=== PATIENT | male | born 1980 | race Caucasian/White ===

== ENCOUNTER 2016-11-08 21:28 | Emergency (ER) | payer SELFPAY ==
--- NOTE | 2016-11-08 22:06 | ED NURSING NOTES ---
Clinical Report - Nurses [facility] [place] [address] 11/08/2016 21:29 Patient: DION HUNTER TRIAGE Triage time 21:43. Chief Complaint: (Clear to book). --21:46 Sheriff Mena R.N. 21:42 11/08/16. BP: 139/87. HR: 118. RR: 20. O2 saturation: 94%. Temp: 98.4 F. Pain level now: 0/10. --21:46 Sheriff Mena R.N. Weight: 122.4 kg stated. Height/Length: 71 inches Per Patient. BMI: 37.7. --21:42 Sheriff Mena R.N. Medications Lisinopril Oral. --21:45 Sheriff Mena R.N. Allergies No Known Drug Allergy. --21:45 Sheriff Mena R.N. History Historian: patient. Arrived in police custody. SURGERY HX: No history of previous surgery. SOCIAL HX: Never smoker. Alcohol use; consumes beer weekly. History of drug use: marijuana. FALL RISK ASSESSMENT: Fall risk assessment completed. No fall risk identified. NUTRITIONAL RISK ASSESSMENT: The nutritional risk assessment revealed no deficiencies. FUNCTIONAL ASSESSMENT: Functional assessment: no impairments noted. LEARNING NEEDS ASSESSMENT: The learning needs assessment revealed no barriers. SKIN INTEGRITY ASSESSMENT: Skin integrity risk assessment completed. No skin integrity risk identified. --21:46 Sheriff Mena R.N. PROBLEMS: Hypertension. --21:46 Sheriff Mena R.N. PHYSICAL ASSESSMENT Ambulatory to room. GENERAL / NEURO / PSYCH: Alert. Oriented X 4. Appears in no acute distress. HEENT: Mucous membranes are pink. RESPIRATORY: Respirations not labored. CVS: Capillary refill less than 2 seconds. Pulses within normal limits. SKIN: Skin intact. Skin is warm and dry. Normal skin turgor. --22:15 Sheriff Mena R.N. NURSING PROGRESS NOTES Two patient identifiers checked. Call light placed in reach. Side rails up. Bed placed in lowest position. Brakes of bed on. --22:16 Sheriff Mena R.N. DISPOSITION / DISCHARGE Condition at departure: stable. No learning barriers present. Discharge instructions provided and reviewed with the patient. Patient verbalized understanding. Written instructions provided in [place]. The patient was discharged by the physician. He was discharged to police department facility and accompanied by a police escort. He left the Emergency Department ambulatory and via private vehicle and police department vehicle. Driving (Police). --22:17 Sheriff Mena R.N. Locked/Released at 11/08/2016 22:17 by Sheriff Mena R.N.
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
--- NOTE | 2016-11-08 22:06 | ED NURSING NOTES ---
Clinical Report - Nurses [facility] [place] [address] 11/08/2016 21:29 Patient: DION HUNTER TRIAGE Triage time 21:43. Chief Complaint: (Clear to book). --21:46 Sheriff Mena R.N. 21:42 11/08/16. BP: 139/87. HR: 118. RR: 20. O2 saturation: 94%. Temp: 98.4 F. Pain level now: 0/10. --21:46 Sheriff Mena R.N. Weight: 122.4 kg stated. Height/Length: 71 inches Per Patient. BMI: 37.7. --21:42 Sheriff Mena R.N. Medications Lisinopril Oral. --21:45 Sheriff Mena R.N. Allergies No Known Drug Allergy. --21:45 Sheriff Mena R.N. History Historian: patient. Arrived in police custody. SURGERY HX: No history of previous surgery. SOCIAL HX: Never smoker. Alcohol use; consumes beer weekly. History of drug use: marijuana. FALL RISK ASSESSMENT: Fall risk assessment completed. No fall risk identified. NUTRITIONAL RISK ASSESSMENT: The nutritional risk assessment revealed no deficiencies. FUNCTIONAL ASSESSMENT: Functional assessment: no impairments noted. LEARNING NEEDS ASSESSMENT: The learning needs assessment revealed no barriers. SKIN INTEGRITY ASSESSMENT: Skin integrity risk assessment completed. No skin integrity risk identified. --21:46 Sheriff Mena R.N. PROBLEMS: Hypertension. --21:46 Sheriff Mena R.N. PHYSICAL ASSESSMENT Ambulatory to room. GENERAL / NEURO / PSYCH: Alert. Oriented X 4. Appears in no acute distress. HEENT: Mucous membranes are pink. RESPIRATORY: Respirations not labored. CVS: Capillary refill less than 2 seconds. Pulses within normal limits. SKIN: Skin intact. Skin is warm and dry. Normal skin turgor. --22:15 Sheriff Mena R.N. NURSING PROGRESS NOTES Two patient identifiers checked. Call light placed in reach. Side rails up. Bed placed in lowest position. Brakes of bed on. --22:16 Sheriff Mena R.N. DISPOSITION / DISCHARGE Condition at departure: stable. No learning barriers present. Discharge instructions provided and reviewed with the patient. Patient verbalized understanding. Written instructions provided in [place]. The patient was discharged by the physician. He was discharged to police department facility and accompanied by a police escort. He left the Emergency Department ambulatory and via private vehicle and police department vehicle. Driving (Police). --22:17 Sheriff Mena R.N. Locked/Released at 11/08/2016 22:17 by Sheriff Mena R.N.
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
--- NOTE | 2016-11-09 03:19 | ED MED RECONCILIATION SUMMARY ---
Patient: DION HUNTER Medication Reconciliation Report [facility] VisitID: [id number] [address] [place] [address] 36y, M Registration Date/Time: 11/08/2016 Weight: 122.4 kg Height/Length: 71 in. BMI: 37.7 ALLERGIES: No Known Drug Allergy The patient's Home Medications are listed below: CONTINUE TAKING THE FOLLOWING MEDICATIONS: Lisinopril Oral The source(s) of the original Home Medication information: Not obtained. The following Medications were given to the patient in the Emergency Department: None. The following Medications were prescribed to the patient: None.
--- NOTE | 2016-11-09 03:19 | ED MED RECONCILIATION SUMMARY ---
Patient: DION HUNTER Medication Reconciliation Report [facility] VisitID: [id number] [address] [place] [address] 36y, M Registration Date/Time: 11/08/2016 Weight: 122.4 kg Height/Length: 71 in. BMI: 37.7 ALLERGIES: No Known Drug Allergy The patient's Home Medications are listed below: CONTINUE TAKING THE FOLLOWING MEDICATIONS: Lisinopril Oral The source(s) of the original Home Medication information: Not obtained. The following Medications were given to the patient in the Emergency Department: None. The following Medications were prescribed to the patient: None.
--- NOTE | 2016-11-09 03:19 | ED MAR SUMMARY ---
..... Medication Administration Record [facility] [address] [place], [place] [id number] Patient: DION HUNTER Visit ID: [id number] 36y, M Weight: 122.4 kg Height/Length: 71 in BMI: 37.7 ALLERGIES: No Known Drug Allergy
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
--- NOTE | 2016-11-09 03:19 | ED MAR SUMMARY ---
..... Medication Administration Record [facility] [address] [place], [place] [id number] Patient: DION HUNTER Visit ID: [id number] 36y, M Weight: 122.4 kg Height/Length: 71 in BMI: 37.7 ALLERGIES: No Known Drug Allergy
== END 2016-11-08 22:13 ==
LOC: ED SRH 21:28
DX: Z04.1 Encounter for examination and observation following transport accident (principal); V42.5XXA Car driver injured in collision with two- or three-wheeled motor vehicle in traffic accident, initial encounter; Y93.9 Activity, unspecified; Y99.9 Unspecified external cause status; Y92.9 Unspecified place or not applicable; I10 Essential (primary) hypertension; Z02.89 Encounter for other administrative examinations; Z79.899 Other long term (current) drug therapy